=== PATIENT | male | born 2000 | race Hispanic/Latino ===

== ENCOUNTER 2022-05-11 19:12 | Emergency (ER) | payer SELFPAY ==
[2022-05-11 20:43] LABS: Bilirubin Neg (Negative); Blood, Urine 250 (Negative); Clarity Bloody (Clear); Glucose, Urine (Dipstick) Normal (Negative); Ketone, Urine 5 mg/dL (Negative); Leukocyte 100 (Negative); Nitrite Negative (Negative); Protein, Urine (Dipstick) 100 mg/dl (Neg-Trace); Specific Gravity, Urine 1.015 (1.005-1.030); Urobilinogen Normal mg/dL (Less than 2)
[2022-05-11 20:49] LABS: Bacteria/HPF Rare-Few HPF (None Seen); RBC/HPF Greater than 50 HPF (0-3); Squamous Epithelial 0-3 HPF (0-3); WBC/HPF 0-3 HPF (0-3)
== END 2022-05-11 21:25 | disposition home or self-care (01) ==
LOC: CSHERS 19:12
DX: R31.9 Hematuria, unspecified (principal)
CPT/HCPCS: 81003; 81015; 99283